=== PATIENT | male | born 1960 | race American Indian/Alaskan Native ===

== ENCOUNTER 2017-05-23 15:22 | Outpatient (CLI) | payer BC ==
--- NOTE | 2017-05-24 14:12 | Magnetic Resonance Report ---
MRI BRAIN WITHOUT CONTRAST: 05/22/17 CLINICAL: Vertigo. TECHNIQUE: Axial diffusion, T1, T2, FLAIR, gradient echo T2*, and sagittal T1 sequences on a 1.5 Dolly magnet. FINDINGS: Normal ventricles and sulci. No restricted diffusion. Moderate bilateral multifocal periventricular white matter and bilateral basal ganglia hyperintensities on FLAIR and T2. No mass or mass effect. No hemorrhage, edema or extra-axial collection. Normal pituitary and optic chiasm. The brainstem and cerebellum are normal. Intact vascular flow voids. Air-fluid levels in left sphenoid sinuses. Small mucous retention cysts of the left maxillary and left ethmoid sinuses. The orbits, and soft tissues are normal. Normal calvarium and skull base. The IACs and structures of the ears are normal for standard head CT. IMPRESSION: 1. Left sphenoid sinusitis. 2. No mass. 3. 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 4. No evidence of acute, subacute or chronic infarct or hemorrhage.
== END 2017-05-23 15:23 | disposition home or self-care (01) ==
LOC: MRI 15:22
PROVIDERS: ATTEND Internal Medicine
DX: J32.3 Chronic sphenoidal sinusitis (principal); J34.1 Cyst and mucocele of nose and nasal sinus; R42 Dizziness and giddiness
CPT/HCPCS: 70551